=== PATIENT | female | born 1935 | race Caucasian/White ===

== ENCOUNTER 2016-11-11 12:35 | Emergency (ER) | payer MEDICARE, OTHER ==
[~2016-11-11] VITALS: Ht 170.2 cm; Wt 77.1 kg
[2016-11-11 12:37] VITALS: BP 149/74
[2016-11-11] MEDS ORDERED: VITA100041 PO (12:51)
[2016-11-11] MEDS ORDERED: CALC600T21 PO (12:51)
[2016-11-11] MEDS ORDERED: BISO10TA6 PO (12:51)
[2016-11-11] MEDS ORDERED: ATOR1TAB21 PO (12:51)
[2016-11-11] MEDS ORDERED: PRESCAP PO (12:51)
[2016-11-11] MEDS ORDERED: RANI75TA9 PO (12:51)
[2016-11-11] MEDS ORDERED: FAMC500T10 PO (12:51)
[2016-11-11] MEDS ORDERED: RABIES VACCINE HUMAN 2.5 INTERNATIONAL UNITS/ML VIAL (90675) IM ONE (13:15)
[2016-11-11] MEDS ORDERED: RABIES IMMUNE GLOBULIN 1500 INTERNATIONAL UNITS/10 ML VIAL (90375) IM ONE (13:15)
== END 2016-11-11 13:43 | disposition home or self-care (01) ==
LOC: M ED 13:13
DX: Z20.3 Contact with and (suspected) exposure to rabies (principal); Z79.899 Other long term (current) drug therapy; Z88.0 Allergy status to penicillin; Z88.1 Allergy status to other antibiotic agents; Z88.2 Allergy status to sulfonamides

== ENCOUNTER 2016-11-14 08:55 | Emergency (ER) | payer MEDICARE, OTHER ==
[~2016-11-14] VITALS: Ht 167.6 cm; Wt 77.1 kg
[~2016-11-14 08:55] MED LIST: ATOR1TAB21 PO; BISO10TA6 PO; CALC600T21 PO; FAMC500T10 PO; PRESCAP PO; RANI75TA9 PO; VITA100041 PO
[2016-11-14 09:00] VITALS: BP 128/66
[2016-11-14] MEDS ORDERED: RABIES VACCINE HUMAN 2.5 INTERNATIONAL UNITS/ML VIAL (90675) IM ONE (09:30)
== END 2016-11-14 09:53 | disposition home or self-care (01) ==
LOC: M ED 09:30
DX: Z23 Encounter for immunization (principal); Z20.3 Contact with and (suspected) exposure to rabies; I10 Essential (primary) hypertension; E78.00 Pure hypercholesterolemia, unspecified; Z79.899 Other long term (current) drug therapy; Z88.0 Allergy status to penicillin; Z88.1 Allergy status to other antibiotic agents; Z88.2 Allergy status to sulfonamides

== ENCOUNTER 2016-11-18 09:00 | Emergency (ER) | payer MEDICARE, OTHER ==
[~2016-11-18] VITALS: Ht 167.6 cm; Wt 77.1 kg
[2016-11-18] MEDS ORDERED: RABIES VACCINE HUMAN 2.5 INTERNATIONAL UNITS/ML VIAL (90675) IM ONE (10:00)
[2016-11-18 10:21] VITALS: BP 133/71
== END 2016-11-18 10:22 | disposition home or self-care (01) ==
LOC: M ED 09:38
DX: Z23 Encounter for immunization (principal); Z20.3 Contact with and (suspected) exposure to rabies; I10 Essential (primary) hypertension; E78.00 Pure hypercholesterolemia, unspecified; Z79.899 Other long term (current) drug therapy; Z88.0 Allergy status to penicillin; Z88.1 Allergy status to other antibiotic agents; Z88.2 Allergy status to sulfonamides

== ENCOUNTER 2016-11-25 08:59 | Emergency (ER) | payer MEDICARE, OTHER ==
[~2016-11-25] VITALS: Ht 167.6 cm; Wt 77.1 kg
[2016-11-25 09:00] VITALS: BP 131/76
[2016-11-25] MEDS ORDERED: RABIES VACCINE HUMAN 2.5 INTERNATIONAL UNITS/ML VIAL (90675) IM ONE (09:30)
== END 2016-11-25 09:35 | disposition home or self-care (01) ==
LOC: M ED 09:31
DX: Z23 Encounter for immunization (principal); Z20.3 Contact with and (suspected) exposure to rabies; I10 Essential (primary) hypertension; E78.00 Pure hypercholesterolemia, unspecified; Z86.73 Personal history of transient ischemic attack (TIA), and cerebral infarction without residual deficits; Z79.899 Other long term (current) drug therapy; Z88.0 Allergy status to penicillin; Z88.1 Allergy status to other antibiotic agents; Z88.2 Allergy status to sulfonamides; Z87.891 Personal history of nicotine dependence

== ENCOUNTER → 2018-11-05 | Outpatient (REF) | payer MEDICARE, OTHER ==
[~2018-11-05] MED LIST changes: -CALC600T21 PO; +CALC600T60 PO; +RANI75TA15 PO; -RANI75TA9 PO; +VITA-182 PO; -VITA100041 PO
[2018-11-05 18:24] LABS: PERCENT SATURATION 27.4 % (13.2-45.0)
[2018-11-05 18:31] LABS: INR 1.04; PROTHROMBIN TIME 13.7 SECONDS (12.1-14.4)
[2018-11-05 18:32] LABS: PARTIAL THROMBOPLASTIN TIME 30.1 SECONDS (25.4-37.6)
== END ==
LOC: M LAB REF 17:35
PROVIDERS: ATTEND Internal Medicine
DX: R04.0 Epistaxis (principal); I10 Essential (primary) hypertension; E78.5 Hyperlipidemia, unspecified

== ENCOUNTER → 2019-09-06 | Outpatient (REF) | payer MEDICARE, OTHER ==
[~2019-09-06] MED LIST changes: +BISO10TA14 PO; -BISO10TA6 PO
== END ==
LOC: M LAB REF 16:32
PROVIDERS: ATTEND Internal Medicine
DX: R30.0 Dysuria (principal)

== ENCOUNTER → 2020-03-03 | Outpatient (REF) | payer MEDICARE, OTHER ==
[~2020-03-03] MED LIST changes: +ASPI81TA86 PO; +BACITAB PO; +D31000TA2 PO; +FAMC500T PO; -FAMC500T10 PO; +MIDO5TA PO; +MOXI1TAB PO; +NEXI20CA33 PO
[2020-04-20 10:24] LABS: PERCENT SATURATION 36.8 % (13.2-45.0)
== END ==
LOC: M LAB REF 12:19
PROVIDERS: ATTEND Internal Medicine
DX: D64.9 Anemia, unspecified (principal)

== ENCOUNTER 2020-04-04 12:38 | Inpatient (IN) | payer MEDICARE, OTHER ==
[~2020-04-04] VITALS: Ht 170.2 cm; Wt 74.7 kg
[~2020-04-04 12:38] MED LIST changes: -ASPI81TA86 PO; -BACITAB PO; -D31000TA2 PO; -MIDO5TA PO; -MOXI1TAB PO; -NEXI20CA33 PO
[2020-04-04 14:47] LABS: BASO # 0.1 10^3/uL (0.0-0.2); BASO % 0.7 % (0.0-1.0); EOS # 0.6 10^3/uL (0.0-0.5); EOS % 6.5 % (0.0-3.0); HEMATOCRIT 45.1 % (36.0-47.0); HEMOGLOBIN 14.9 g/dl (12.0-15.5); LYMPH # 1.5 10^3/uL (1.5-5.0); LYMPH % 17.9 % (24.0-44.0); MEAN CORPUSCULAR HEMOGLOBIN 31.8 pg (27.0-33.0); MEAN CORPUSCULAR VOLUME 96.2 fl (80.0-96.0); MONO # 0.6 10^3/uL (0.0-0.8); MONO % 6.9 % (0.0-5.0); NEUTROPHILS # 5.7 10^3/uL (1.5-8.5); NEUTROPHILS % 67.9 % (36.0-66.0); PLATELET COUNT, AUTOMATED 249 10^3/uL (150-450); RED BLOOD COUNT 4.69 10^6/uL (4.00-5.40); WHITE BLOOD COUNT 8.5 10^3/uL (4.0-10.0)
[2020-04-04] MEDS ORDERED: MIDO5TA PO (15:10)
[2020-04-04 15:17] LABS: ALBUMIN 3.8 GM/DL (3.2-5.2); ALT/SGPT 22 U/L (12-78); BILIRUBIN,DIRECT 0.2 MG/DL (0.0-0.2); BILIRUBIN,TOTAL 0.5 MG/DL (0.2-1.0); BLOOD UREA NITROGEN 15 MG/DL (7-18); CALCIUM LEVEL 9.7 MG/DL (8.8-10.2); CARBON DIOXIDE LEVEL 23 MEQ/L (21-32); CHLORIDE LEVEL 110 MEQ/L (98-107); CK-MB VALUE MASS 1.4 NG/ML (<3.6); CPK CREATINE PHOSPHOKINASE 131 U/L (26-192); CREATININE FOR GFR 0.94 MG/DL (0.55-1.30); GLOMERULAR FILTRATION RATE > 60.0 (>32); GLUCOSE, FASTING 95 MG/DL (70-100); MB/CK RELATIVE INDEX 1.07 (< OR =4); NT-PRO BNP 351 PG/ML (<450); POTASSIUM SERUM 4.2 MEQ/L (3.5-5.1); SODIUM LEVEL 141 MEQ/L (136-145); TOTAL PROTEIN 7.4 GM/DL (6.4-8.2); TROPONIN I < 0.02 NG/ML (< 0.10)
[2020-04-04] MEDS ORDERED: ISOVUE-370 76% 100ML VIAL As Ordered ONE (16:31)
--- NOTE | 2020-04-04 17:14 | REPVR ---
PROCEDURE INFORMATION: Exam: CT Angiography Chest With Contrast Exam date and time: 04/04/2020 4:53 PM Age: 84 years old Clinical indication: Chest pain; Additional info: SOB, hypoxia TECHNIQUE: Imaging protocol: Computed tomographic angiography of the chest with intravenous contrast. 3D rendering (Not supervised by radiologist): MIP and/or 3D reconstructed images were created by the technologist. Radiation optimization: All CT scans at this facility use at least one of these dose optimization techniques: automated exposure control; mA and/or kV adjustment per patient size (includes targeted exams where dose is matched to clinical indication); or iterative reconstruction. Contrast material: ISO 370; Contrast volume: 75 ml; Contrast route: INTRAVENOUS (IV); COMPARISON: CR Chest, 1 view 04/04/2020 1:39 PM FINDINGS: Pulmonary arteries: No pulmonary arterial embolism. Aorta: Unremarkable. No aortic aneurysm. No aortic dissection. Lungs: Bilateral peripheral ground-glass lung opacities, nonspecific. Ground-glass opacities are present within the medial right upper lobe, posterior left lower lobe and posterior lateral left lower lobe. Differential diagnosis includes infection including bacterial, atypical and viral pneumonias (including COVID-19 pneumonia), nonspecific interstitial pneumonitis, eosinophilic pneumonitis and hypersensitivity pneumonia. Left lower lobe calcified granulomas. Dependent opacities within the lung bases, likely atelectasis. Pleural space: Unremarkable. No pneumothorax. No pleural effusion. Heart: Unremarkable. No cardiomegaly. No pericardial effusion. Lymph nodes: Left hilar calcified lymph nodes. Spleen: Calcified granulomas within the spleen. Bones/joints: Degenerative spondylosis of the thoracic spine. No fracture or suspicious bone lesion. Soft tissues: Unremarkable. IMPRESSION: 1. No pulmonary arterial embolism. 2. Evidence of prior granulomatous disease. 3. Bilateral peripheral ground-glass lung opacities, nonspecific. Differential diagnosis includes infection including bacterial, atypical and viral pneumonias (including COVID-19 pneumonia), nonspecific interstitial pneumonitis, eosinophilic pneumonitis and hypersensitivity pneumonia. Electronically signed by: Gaston Marrero On 04/04/2020 17:14:06 PM
[2020-04-04] MEDS ORDERED: LevoFLOXacin IV 750 MG in IV 1 EA IV ONE (18:15)
[2020-04-04] MEDS ORDERED: D31000TA2 PO (19:01)
[2020-04-04] MEDS ORDERED: NEXI20CA33 PO (19:01)
[2020-04-04] MEDS ORDERED: ACETAMINOPHEN TAB 650MG DOSE (2X325MG) PO PRN (19:15)
[2020-04-04] MEDS ORDERED: MOM 30ML SUSPENSION UDC PO PRN (19:15)
--- NOTE | 2020-04-04 19:19 | HPEPDOC ---
[facility] Medical History & Physical Date of Admission Apr 04, 2020 Date of Service: Apr 04, 2020 Primary Care Physician: ALBA BULLOCK DO Attending Physician: JESSICA BREWER MD History and Physical TIME OF SERVICE: 810 am CHIEF COMPLAINT: dyspnea HISTORY OF PRESENT ILLNESS: This 84 yr old F presented w c/o worsening of gradually worsening shortness of breath for 1 week associated with decreased energy, and cough productive of clear sputum. She denied having f/c/n/v/d/chest pain, abdominal pain or muscle aches. She chronically has a runny nose which she attributes to seasonal a llergies. In the ER she was noted to desat to 84% with ambulation and was started on Levaquin. REVIEW OF SYSTEMS: 12 point review of systems negative except as listed in HPI PAST MEDICAL/ SURGICAL HISTORY: Chronic hypotension TIA Cataracts OA Hysterectomy Vein stripping surgery for varicose veins SOCIAL HISTORY: Former smoker / drinks alcohol socially / no recreational drugs FAMILY HISTORY: Lymphoma / lung cancer ALLERGIES: Please see below. HOME MEDICATIONS: Please see below. PHYSICAL EXAM Vital Signs Date Time Temp Pulse Resp B/P (MAP) Pulse Ox O2 Delivery O2 Flow Rate FiO2 04/04/20 12:40 97.9 105 18 170/89 (116) 96 Room Air GENERAL APPEARANCE: well nourished / well developed /NAD HEENT: no scleral icterus / EOMI CARDIOVASCULAR: RRR/NMRG / radial pulse intact LUNGS: not using accessory muscles / occasional cough / CTAB on RA ABDOMEN: soft & not tender w palpitation MUSCULOSKELETAL: SONU x 4 INTEGUMENT: not flushed or diaphoretic / no generalized pallor NEUROLOGICAL: CN -12 intact / speech not dysarthric PSYCHIATRIC: A&Ox 3 /able to understand and follow all commands LABORATORY DATA: 04/04/20 14:24 Immature Granulocyte % (Auto) 0.1, Neutrophils (%) (Auto) 67.9H, Lymphocytes (%) (Auto) 17.9L, Monocytes (%) (Auto) 6.9H, Eosinophils (%) (Auto) 6.5H, Basophils (%) (Auto) 0.7, Neutrophils # (Auto) 5.7, Lymphocytes # (Auto) 1.5, Monocytes # (Auto) 0.6, Eosinophils # (Auto) 0.6H, Basophils # (Auto) 0.1, Nucleated Red Blood Cells % (auto) 0.0, Anion Gap 8, Glomerular Filtration Rate > 60.0, Calcium Level 9.7, Total Bilirubin 0.5, Direct Bilirubin 0.2, Aspartate Amino Transf (AST/SGOT) 22, Alanine Aminotransferase (ALT/SGPT) 22, Alkaline Phosphatase 98, Total Creatine Kinase 131, Creatine Kinase MB 1.4, Creatine Kinase MB Relative Index 1.07, Troponin I < 0.02, EJ-Pei-Z-Type Natriuretic Peptide 351, Total Protein 7.4, Albumin 3.8, Albumin/Globulin Ratio 1.1L, Thyroid Stimulating Hormone (TSH) 1.510 IMAGING: CTA chest IMPRESSION: 1. No pulmonary arterial embolism. 2. Evidence of prior granulomatous disease. 3. Bilateral peripheral ground-glass lung opacities, nonspecific. Differential diagnosis includes infection including bacterial, atypical and viral pneumonias (including COVID-19 pneumonia), nonspecific interstitial pneumonitis, eosinophilic pneumonitis and hypersensitivity pneumonia. MICROBIOLOGY: 04/04/20 Respiratory Virus Panel (PCR) (JAZMINE) - Final, Complete ASSESSMENT: is an 84 yr old w a hx of TIA and hypotension who presented w c/o of dyspnea and productive cough and was found to have bilateral opacities on CT; she will be admitted for possible PNA. PLAN: 1 Possible Pneumonia -symptoms include dyspnea and cough & hypoxia with ambulation CURB 65 score to determine if pt should be admitted = 1 point = low risk Respiratory panel neg Plan: despite low CURB 65 score will admit to med surg bc of hypoxia w ambulation / f/u strep pneumo, legionella, procalcitonin, sputum cx / c/w levofloxacin / Acetaminophen PRN for fever / day time team to consider repeat COVID 19 in case the first test is a false neg & ambulatory / f/u repeat ambulatory pulse ox test in the AM if wnl consider early discharge 2 Chronic Hypotension Plan: midodrine 3. TIA Plan: atorvastatin, add ASA DVT px w Lovenox (Gonzalo Prediction Score = 4 points = pharmacological Px indicated) Dispo: home after more than 2 midnights stay Home Medications Scheduled Aspirin (Aspir 81) 81 Mg Tablet.dr, 81 MG PO DAILY for pain Atorvastatin Calcium (Atorvastatin Calcium) 20 Mg Tab, 20 MG PO DAILY Calcium Carbonate (Calcium) 600 Mg Tab, 600 MG PO DAILY Cholecalciferol (Vitamin D3) (Vitamin D3) 1,000 Unit Tablet, 1,000 UNITS PO DAILY Esomeprazole Magnesium (Nexium 24Hr) 20 Mg Capsule.dr, 20 MG PO DAILY Famciclovir (Famciclovir) 500 Mg Tab, 500 MG PO DAILY Midodrine HCl (Midodrine HCl) 5 Mg Tablet, 5 MG PO TID Vit A/Vit C/Vit E/Zinc/Copper (Preservision Areds Softgel) 1 Cap Cap, 1 CAP PO DAILY Allergies Coded Allergies: Penicillins (Verified Allergy, Intermediate, 04/04/20) Sulfa (Sulfonamide Antibiotics) (Verified Allergy, Intermediate, 04/04/20) A-FIB/CHADSVASC A-FIB History Current/History of A-Fib/PAF?: No Current PO Anticoag Therapy: No JESSICA BREWER MD Apr 04, 2020 19:19
[2020-04-04] MEDS ORDERED: ASPI81TA86 PO (22:43)
[2020-04-05 06:36] LABS: HEMATOCRIT 43.4 % (36.0-47.0); HEMOGLOBIN 14.3 g/dl (12.0-15.5); MEAN CORPUSCULAR HEMOGLOBIN 31.7 pg (27.0-33.0); MEAN CORPUSCULAR HGB CONC 32.9 g/dl (32.0-36.5); MEAN CORPUSCULAR VOLUME 96.2 fl (80.0-96.0); PLATELET COUNT, AUTOMATED 242 10^3/uL (150-450); RED BLOOD COUNT 4.51 10^6/uL (4.00-5.40); WHITE BLOOD COUNT 8.4 10^3/uL (4.0-10.0)
[2020-04-05 07:00] LABS: BLOOD UREA NITROGEN 14 MG/DL (7-18); CARBON DIOXIDE LEVEL 25 MEQ/L (21-32); CHLORIDE LEVEL 110 MEQ/L (98-107); CREATININE FOR GFR 1.01 MG/DL (0.55-1.30); GLOMERULAR FILTRATION RATE 55.5 (>32); GLUCOSE, FASTING 94 MG/DL (70-100); POTASSIUM SERUM 4.2 MEQ/L (3.5-5.1); SODIUM LEVEL 143 MEQ/L (136-145)
[2020-04-05] MEDS ORDERED: PNEUMOCOCCAL VACCINE 0.5ML SYRINGE (PNEUMOVAX 23) IM ONE (09:00)
[2020-04-05] MEDS ORDERED: PREVNAR 13 VACCINE SYRINGE IM ONE (09:00)
[2020-04-05 09:45] VITALS: BP 143/93
[2020-04-05] MEDS: ASPIRIN 81 MG CHEW TABLET PEG SCH (10:58)
[2020-04-05] MEDS: ATORVASTATIN 20 MG TAB PO SCH (10:58)
[2020-04-05] MEDS: MIDODRINE 5 MG TAB PO SCH ×3 (10:58→16:19)
[2020-04-05] MEDS: OCUVITE 1 TAB PO SCH (10:58)
[2020-04-05] MEDS: OMEPRAZOLE 20 MG CAP PO SCH (10:58)
[2020-04-05] MEDS: ENOXAPARIN 40MG/0.4ML SYRINGE (J1650 PER 10MG) SC SCH (10:59)
[2020-04-05 11:54] VITALS: O2SAT 94
[2020-04-05 13:00] VITALS: BP_SYST 129; BP_SYST 144; BP_SYST 146; BP_DIAS 83; BP_DIAS 88; BP_DIAS 93
[2020-04-05 13:31] LABS: C REACTIVE PROTEIN QUANTITATIV < 0.30 MG/DL (0.00-0.30)
[2020-04-05 14:00] VITALS: BP 142/88
[2020-04-05 14:16] LABS: ERYTHROCYTE SEDIMENTATION RATE 10 mm/hr (0-30)
[2020-04-05 22:00] VITALS: BP 128/81
[2020-04-06 06:00] VITALS: BP 127/80
[2020-04-06 08:05] VITALS: O2SAT 95
[2020-04-06] MEDS: OMEPRAZOLE 20 MG CAP PO SCH (08:12)
[2020-04-06] MEDS: ATORVASTATIN 20 MG TAB PO SCH (08:12)
[2020-04-06] MEDS: ASPIRIN 81 MG CHEW TABLET PEG SCH (08:13)
[2020-04-06] MEDS: MIDODRINE 5 MG TAB PO SCH ×3 (08:13→16:09)
[2020-04-06] MEDS: OCUVITE 1 TAB PO SCH (08:13)
[2020-04-06] MEDS: ENOXAPARIN 40MG/0.4ML SYRINGE (J1650 PER 10MG) SC SCH (08:14)
[2020-04-06] MEDS ORDERED: FLUBLOK(EGG FREE)(QUAD)INFLUENZA VACC 0.5ML SYRINGE 18YRS & OLDER IM ONE (09:00)
[2020-04-06 13:57] LABS: BASO % 0.3 % (0.0-1.0); EOS # 0.6 10^3/uL (0.0-0.5); EOS % 6.3 % (0.0-3.0); HEMATOCRIT 46.6 % (36.0-47.0); HEMOGLOBIN 15.2 g/dl (12.0-15.5); LYMPH # 1.7 10^3/uL (1.5-5.0); LYMPH % 17.9 % (24.0-44.0); MEAN CORPUSCULAR HEMOGLOBIN 31.6 pg (27.0-33.0); MEAN CORPUSCULAR HGB CONC 32.6 g/dl (32.0-36.5); MEAN CORPUSCULAR VOLUME 96.9 fl (80.0-96.0); MONO # 0.8 10^3/uL (0.0-0.8); MONO % 8.1 % (0.0-5.0); NEUTROPHILS # 6.3 10^3/uL (1.5-8.5); PLATELET COUNT, AUTOMATED 273 10^3/uL (150-450); RED BLOOD COUNT 4.81 10^6/uL (4.00-5.40); WHITE BLOOD COUNT 9.5 10^3/uL (4.0-10.0)
[2020-04-06 14:00] VITALS: BP 148/92
[2020-04-06 14:20] LABS: CALCIUM LEVEL 9.4 MG/DL (8.8-10.2); CREATININE FOR GFR 1.12 MG/DL (0.55-1.30); GLOMERULAR FILTRATION RATE 49.2 (>32); POTASSIUM SERUM 4.2 MEQ/L (3.5-5.1)
[2020-04-06] MEDS ORDERED: LevoFLOXacin IV 750 MG in IV 1 EA IV SCH (18:00)
[2020-04-06 22:00] VITALS: BP 133/76; O2SAT 97
[2020-04-07 06:00] VITALS: BP 129/75
[2020-04-07] MEDS ORDERED: MOXI1TAB PO (08:05)
[2020-04-07] MEDS ORDERED: BACITAB PO (08:05)
[2020-04-07] MEDS: ENOXAPARIN 40MG/0.4ML SYRINGE (J1650 PER 10MG) SC SCH (08:34)
[2020-04-07] MEDS: ATORVASTATIN 20 MG TAB PO SCH (08:34)
[2020-04-07] MEDS: OMEPRAZOLE 20 MG CAP PO SCH (08:34)
[2020-04-07] MEDS: ASPIRIN 81 MG CHEW TABLET PEG SCH (08:34)
[2020-04-07] MEDS: OCUVITE 1 TAB PO SCH (08:34)
[2020-04-07] MEDS: MIDODRINE 5 MG TAB PO SCH ×2 (08:35→12:00)
[2020-04-07 09:48] LABS: BASO % 0.3 % (0.0-1.0); EOS # 0.7 10^3/uL (0.0-0.5); EOS % 9.2 % (0.0-3.0); HEMATOCRIT 44.9 % (36.0-47.0); HEMOGLOBIN 14.9 g/dl (12.0-15.5); LYMPH # 1.5 10^3/uL (1.5-5.0); LYMPH % 19.4 % (24.0-44.0); MEAN CORPUSCULAR HEMOGLOBIN 31.6 pg (27.0-33.0); MEAN CORPUSCULAR HGB CONC 33.2 g/dl (32.0-36.5); MEAN CORPUSCULAR VOLUME 95.3 fl (80.0-96.0); MONO # 0.6 10^3/uL (0.0-0.8); MONO % 7.6 % (0.0-5.0); NEUTROPHILS % 63.2 % (36.0-66.0); PLATELET COUNT, AUTOMATED 274 10^3/uL (150-450); RED BLOOD COUNT 4.71 10^6/uL (4.00-5.40); WHITE BLOOD COUNT 7.9 10^3/uL (4.0-10.0)
[2020-04-07 09:58] LABS: CALCIUM LEVEL 9.5 MG/DL (8.8-10.2); CREATININE FOR GFR 1.1 MG/DL (0.55-1.30); GLOMERULAR FILTRATION RATE 50.3 (>32); POTASSIUM SERUM 4.2 MEQ/L (3.5-5.1)
--- NOTE | 2020-04-07 13:40 | IPN ---
DATE: 04/05/2020 SUBJECTIVE: Patient is seen and examined at the bedside. Chart has been reviewed. She denies any fever, chills, nausea, or vomiting. Epigastric pain does not radiate and currently at 2/10 on a pain scale. OBJECTIVE: PHYSICAL EXAMINATION: Vital signs: Temperature 98.2, pulse 95, respiratory rate 18, blood pressure 143/93, 95% on room air. Generally: Awake, alert, oriented times three, answering questions appropriately. Anicteric sclerae. No jaundice. Pupils round and reactive. Extraocular muscles intact. Normocephalic, atraumatic. Moist mucous membranes. No jugular venous distension (JVD) or thyromegaly. Lungs: Clear to auscultation. No wheezing, rales, or rhonchi. Heart: S1, S2, sinus rhythm. No murmurs, rubs, or gallops. Abdomen: Soft, tender in the epigastric region and left upper quadrant, no rebound or guarding. Positive bowel sounds times four quadrants. No hepatosplenomegaly. No abdominal bruit. No costovertebral (CVA) tenderness. Extremities: No cyanosis or clubbing. LABORATORY DATA: White count 8.4, hemoglobin 14, hematocrit 43, platelet count 242, sodium 143, potassium 4.2, chloride 110, bicarbonate 25, BUN 14, creatinine 1.02, glucose of 94. Microbiology: Respiratory panel negative. CT abdomen and pelvis on 04/04/2020 shows nonspecific ground glass opacity medial right upper lobe, posterior lower lobe, posterolateral left lower lobe. No pulmonary embolism. Respiratory panel is negative for COVID. ASSESSMENT AND PLAN: This is an 84-year-old female with history of transient ischemic attack (TIA), osteoarthritis, varicosities, hypotension, presented with dyspnea, found to have acute hypoxic respiratory failure at 84% with ambulation, allergy to PENICILLIN, found to have CT chest with ground glass opacity concerning for pneumonia. Patient had no white count. Respiratory panel negative. IMPRESSION: 1. Abnormal CT chest. Possible pneumonia. Allergy to PENICILLIN. Currently on Levaquin. Culture results have been ordered. COVID-19 is negative. 2. Chronic hypotension. On midodrine. 3. Transient ischemic attack (TIA). On aspirin, Lipitor. MTDD
[2020-04-07 14:00] VITALS: BP 134/97
--- NOTE | 2020-04-07 15:24 | IPN ---
DATE: 04/06/2020 SUBJECTIVE: Patient seen and examined at the bedside. Chart has been reviewed. This morning, denies any fever, chills, cough, or shortness of breath. No nausea, vomiting, diarrhea. No headaches or changes in vision. No dysuria, urgency, or frequency. No other issues per nursing. OBJECTIVE: PHYSICAL EXAMINATION: Vital signs: Temperature 97, pulse 85, respiratory rate 16, blood pressure 127/80, 94% on room air. Generally: Patient is awake, alert, oriented times three, answering questions appropriately. No icterus. No jaundice. No sinus tenderness. Patient has no respiratory accessory muscle use or conversational dyspnea. Able to complete full sentences without difficulty. No jugular venous distension (JVD). No thyromegaly. Lungs: Diminished. No wheezing or rales. Heart: S1, S2, sinus rhythm. Abdomen: Soft, nontender, nondistended. Positive bowel sounds times four quadrants. No hepatosplenomegaly, abdominal bruit. Extremities: No cyanosis, clubbing, or pitting edema. 04/05/2020 CBC and metabolic panel have been reviewed. 04/06/2020 labs are still pending. ASSESSMENT AND PLAN: This is an 84-year-old female admitted 04/04/2020 with complaints of dyspnea for the past week with decreased energy, cough productive of clear sputum without fever, chills, patient had a runny nose attributable to seasonal allergies, had negative COVID testing and respiratory panel, found to have bilateral infiltrates on CT chest and was admitted for bilateral pneumonia. Patient has no white count or fever. Due to PENICILLIN allergy was placed on Levaquin and has improved since with saturations of 92-95% on room air. IMPRESSION: 1. Bilateral pneumonia, bilateral infiltrates. Currently on room air. On Levaquin due to PENICIILLIN allergy. Review of the CT chest by Dr. Gaytan, managing member armed security professional today, showed that there is no significant opacities or infiltrates, most likely scarring and some atelectasis and recommended no repeat COVID testing, as well as incentive spirometry. 2. Chronic hypotension. On midodrine with holding parameters. 3. History of transient ischemic attack (TIA). On aspirin and atorvastatin. DISPOSITION: Physical therapy (PT) home safety evaluation, ambulate, and discharge home if negative procalcitonin. [facility]
--- NOTE | 2020-04-07 15:26 | IPN ---
DATE: 04/07/2020 SUBJECTIVE Patient seen and examined at the bedside. Chart has been reviewed. Per nursing, patient becomes tachycardic. Weight of 152. Patient denies any cough. No fever or chills overnight. OBJECTIVE PHYSICAL EXAMINATION: VITAL SIGNS Temperature 98, pulse 80, respiratory rate 18, blood pressure 129/75, 95% on room air. GENERAL: Patient is awake, alert, oriented times three. No conversational dyspnea. No icterus. No jugular venous distention (JVD). No cervical lymphadenopathy. LUNGS: Diminished but clear to auscultation. No wheezing, rales, or rhonchi. HEART: S1, S2, sinus tachycardia. ABDOMEN: Soft, nontender, nondistended. Positive bowel sounds. EXTREMITIES: No cyanosis, clubbing, or pitting edema. LABORATORY DATA: White count 7.9, hemoglobin 14, hematocrit 44, platelet count 274. Sodium 141, potassium 4.2, chloride 109, bicarbonate 22, BUN 19, creatinine 1.1, glucose 148. Blood cultures negative. Urine culture negative. Respiratory panel negative. COVID negative. ASSESSMENT AND PLAN: This is an 84-year-old female, admitted on 04/04/2020 due to shortness of breath. Was found to be 84% on room air. CT chest showed bilateral opacities. Respiratory panel and COVID were negative. Admitted for pneumonia. Due to penicillin allergy was given Levaquin renal dosing. Patient was found to be tachycardic, rate of 150. EKG still pending. IMPRESSION: 1. Pneumonia with bilateral opacities, on Levaquin. Afebrile. Negative COVID and respiratory panel. Continue with a full course of 7 days of antibiotics. 2. Chronic hypotension, on chronic midodrine. 3. Transient ischemic attack (TIA), on aspirin and Lipitor. 4. Sinus tachycardia. Obtain 12-lead EKG rule out arrhythmia and continue on telemetry. [facility]
[2020-04-08 16:07] LABS: ANTINUCLEAR ANTIBODIES DIRECT Negative (Negative)
[2020-04-10 15:10] LABS: BODY FLUID CULTURE Not indicated. (.); LEGIONELLA ANTIGEN URINE Negative (Negative); ORGANISM ID Not indicated. (.); SPECIMEN SOURCE Urine (.); URINE STREP PNEUMONIAE ANTIGEN Negative (Negative)
--- NOTE | 2020-04-17 11:00 | ECGEPIP ---
[facility] - ED Test Date: 2020-04-04 Pat Name: LILIA POLANCO Department: Room: - Gender: Female Piping Supervisor: BIPIN : [id number] Requested By: RUDY Caceres Order Number: [id number] Reading MD: Batsheva Mauricio Measurements Intervals [place] Rate: 79 P: -1 ND: 159 QRS: -3 QRSD: 78 T: 16 QT: 363 QTc: 417 Interpretive Statements SINUS RHYTHM MODERATE VOLTAGE CRITERIA FOR LVH, CONSIDER NORMAL VARIANT BORDERLINE ECG SEE SCANNED DOWNTIME REPORT
--- NOTE | 2020-04-20 14:38 | ECGEPIP ---
[facility] Test Date: 2020-04-07 Pat Name: LILIA POLANCO Department: Room: [place] [address] Gender: Female Apple Picker: REBECCA : [id number] Requested By: DUGLAS Cruz Order Number: [id number] Reading MD: Julio Whyte Measurements Intervals [place] Rate: 87 P: -12 IA: 161 QRS: -1 QRSD: 80 T: 31 QT: 344 QTc: 415 Interpretive Statements SINUS RHYTHM NORMAL ECG SEE SCANNED DOWNTIME REPORT
--- NOTE | 2020-05-02 11:37 | REP ---
CLINICAL: Shortness of breath. FINDINGS: Mediastinum and cardiac silhouette are within normal limits. Lung prince demonstrate chronic appearing interstitial changes. No consolidation, effusion or pneumothorax. Skeletal structures are intact. IMPRESSION: No acute consolidation or effusion. MTDD
== END 2020-04-07 14:41 | disposition home or self-care (01) | DRG 195 ==
LOC: M ED 12:38 → M ED INP 19:15 → ENRESERV 04-05 06:42 → M MSPAV 04-05 09:47
PROVIDERS: ADMIT Internal Medicine; ATTEND General Practice
DX: J18.9 Pneumonia, unspecified organism (principal); I10 Essential (primary) hypertension; Z86.73 Personal history of transient ischemic attack (TIA), and cerebral infarction without residual deficits; Z79.82 Long term (current) use of aspirin; Z79.899 Other long term (current) drug therapy; M19.90 Unspecified osteoarthritis, unspecified site; Z87.891 Personal history of nicotine dependence; Z88.0 Allergy status to penicillin; Z88.2 Allergy status to sulfonamides

== ENCOUNTER → 2020-04-28 | Outpatient (REF) | payer MEDICARE, OTHER ==
[~2020-04-28] MED LIST changes: +ASPI81TA86 PO; +BACITAB PO; +D31000TA2 PO; +MIDO5TA PO; +MOXI1TAB PO; +NEXI20CA33 PO
[2020-04-28 17:57] LABS: C REACTIVE PROTEIN QUANTITATIV 0.34 MG/DL (0.00-0.30)
[2020-04-28 18:11] LABS: VITAMIN B12 LEVEL 520 PG/ML (247-911)
== END ==
LOC: M LAB REF 17:18
PROVIDERS: ATTEND Internal Medicine
DX: R41.3 Other amnesia (principal); M15.9 Polyosteoarthritis, unspecified

== ENCOUNTER → 2020-06-13 | Outpatient (CLI) | payer MEDICARE, OTHER ==
--- NOTE | 2020-06-13 14:54 | REPVR ---
PROCEDURE INFORMATION: Exam: MR Cervical Spine Without Contrast Exam date and time: 06/13/2020 2:36 PM Age: 85 years old Clinical indication: Weakness and other: Unsteadiness on feet, TIA attack TECHNIQUE: Imaging protocol: Multiplanar magnetic resonance images of the cervical spine without contrast. COMPARISON: No relevant prior studies available. FINDINGS: Limitations: The study is mildly limited due to patient motion artifact. Vertebrae: No acute fracture is identified. Fusion of the bilateral C2-C3 facets is present. Fusion of the right C4-C5 facets are also noted. Spinal cord: The cervical cord is of normal signal intensity and size. C2-C3: Facet arthropathy with fusion of the facets is noted. There is no spinal canal or neural foraminal stenosis. C3-C4: There is a broad-based posterior disc osteophyte complex, moderate uncinate spurring, severe right facet arthropathy, and mild left facet arthropathy. This is causing minimal spinal canal stenosis, severe right neural foraminal narrowing, and moderate/severe left neural foraminal narrowing. C4-C5: There is severe right and mild left facet arthropathy. Fusion of the right facets is present. There is no significant spinal canal or neural foraminal stenosis. C5-C6: There is a shallow broad-based posterior disc osteophyte complex, mild uncinate spurring, and severe right facet arthropathy. There is no significant spinal canal or neural foraminal stenosis. C6-C7: There is a shallow broad-based posterior disc osteophyte complex, mild uncinate spurring, and mild facet arthropathy. This is causing minimal spinal canal stenosis and mild left neural foraminal narrowing. There is a tiny incidental perineural cyst in the left extraforaminal region. C7-T1: There is a shallow broad-based posterior disc osteophyte complex and moderate uncinate spurring. This is causing mild spinal canal stenosis and moderate/severe bilateral neural foraminal narrowing. An incidental perineural cyst is present in the left extraforaminal region. Vertebral arteries: Expected flow voids in the vertebral arteries. Soft tissues: The prevertebral soft tissues are within normal limits. IMPRESSION: Marked degenerative changes of the cervical spine as discussed above Electronically signed by: David Cordoba On 06/13/2020 14:54:31 PM
--- NOTE | 2020-06-13 14:59 | REPVR ---
PROCEDURE INFORMATION: Exam: MR Thoracic Spine Without Contrast Exam date and time: 06/13/2020 2:36 PM Age: 85 years old Clinical indication: Weakness and other: Unsteadiness on feet, TIA attack TECHNIQUE: Imaging protocol: Multiplanar magnetic resonance images of the thoracic spine without contrast. COMPARISON: No relevant prior studies available. FINDINGS: Limitations: The study is mildly limited due to patient motion artifact. Vertebrae: No acute fracture is identified. Degenerative Modic 1 and Modic 2 marrow changes are present in the T5 through T8 vertebral bodies. Alignment is anatomic. Spinal cord: Normal signal. No cord compression. Discs/Spinal canal/Neural foramina: Extensive degenerative changes of the thoracic spine are present. Mild posterior disc bulging is present at T1-2, T2-3, T5-6, T6-7, T7-8, T11-12, and T12-L1. There are no areas of moderate or severe canal stenosis. Small incidental perineural cysts are noted in the foramina and extraforaminal regions at multiple levels of the thoracic spine. Soft tissues: Unremarkable. IMPRESSION: 1. No acute abnormality. 2. Chronic findings as discussed above. Electronically signed by: David Cordoba On 06/13/2020 14:59:19 PM
== END ==
LOC: M RAD 13:00
PROVIDERS: ATTEND Psychiatry & Neurology Neurology
DX: G45.9 Transient cerebral ischemic attack, unspecified (principal)

== ENCOUNTER → 2020-06-16 | Outpatient (CLI) | payer MEDICARE, OTHER ==
--- NOTE | 2020-06-16 13:46 | REPVR ---
PROCEDURE INFORMATION: Exam: MR Angiogram Head Without Contrast, Arteries Exam date and time: 06/16/2020 1:30 PM Age: 85 years old Clinical indication: Other: Unbalanced gait, HX TIA; Additional info: Transient cerebral ischemic attack, unsteadiness on feet TECHNIQUE: Imaging protocol: MR angiogram head without contrast. Exam focused on the arteries. 3D rendering (Not supervised by radiologist): MIP and/or 3D reconstructed images were created by the technologist. COMPARISON: No relevant prior studies available. FINDINGS: ANTERIOR CIRCULATION: Right internal carotid artery: Intracranial segment is patent with no significant stenosis. No aneurysm. Right middle cerebral artery: No occlusion or significant stenosis. No aneurysm. Right anterior cerebral artery: No occlusion or significant stenosis. No aneurysm. Left internal carotid artery: Intracranial segment is patent with no significant stenosis. No aneurysm. Left middle cerebral artery: No occlusion or significant stenosis. No aneurysm. Left anterior cerebral artery: No occlusion or significant stenosis. No aneurysm. POSTERIOR CIRCULATION: Right vertebral artery: No occlusion or significant stenosis. No aneurysm. Left vertebral artery: No occlusion or significant stenosis. No aneurysm. Basilar artery: There is suspected focal fenestration of the proximal basilar artery. No occlusion or significant stenosis. No aneurysm. Right posterior cerebral artery: There is a origin of the right posterior cerebral artery. Left posterior cerebral artery: No occlusion or significant stenosis. No aneurysm. IMPRESSION: 1. 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 This could be confirmed with CTA as indicated. 2. Otherwise, examination within normal limits. Electronically signed by: Skyla Shoemaker On 06/16/2020 13:46:28 PM
--- NOTE | 2020-06-16 13:48 | REPVR ---
PROCEDURE INFORMATION: Exam: MR Angiography Neck Without Contrast Exam date and time: 06/16/2020 1:30 PM Age: 85 years old Clinical indication: Other: Unbalanced gait, HX TIA; Additional info: Transient cerebral ischemic attack, unsteadiness on feet TECHNIQUE: Imaging protocol: Magnetic resonance angiography of the neck without contrast. 3D rendering (Not supervised by radiologist): MIP and/or 3D reconstructed images were created by the technologist. COMPARISON: MRI-Spine,Cervical without con 06/13/2020 1:38 PM FINDINGS: Right common carotid artery: No stenosis. No dissection or occlusion. Right internal carotid artery: No stenosis of the extracranial segment. No dissection or occlusion. Right external carotid artery: No stenosis. No dissection or occlusion of the origin. Right vertebral artery: No stenosis. No dissection or occlusion. Left common carotid artery: No stenosis. No dissection or occlusion. Left internal carotid artery: No stenosis of the extracranial segment. No dissection or occlusion. Left external carotid artery: No stenosis. No dissection or occlusion of the origin. Left vertebral artery: No stenosis. No dissection or occlusion. IMPRESSION: No stenosis or occlusion. REFERENCES: NASCET CRITERIA. The degree of internal carotid artery stenosis is based on NASCET criteria. Normal is no stenosis. Mild is less than 50% stenosis. Moderate is 50-69% stenosis. Severe is 70% to 99% stenosis. Total occlusion is no detectable patent lumen. Electronically signed by: Skyla Shoemaker On 06/16/2020 13:47:59 PM
== END ==
LOC: M RAD 12:03
PROVIDERS: ATTEND Psychiatry & Neurology Neurology
DX: G45.9 Transient cerebral ischemic attack, unspecified (principal); R26.81 Unsteadiness on feet; M50.00 Cervical disc disorder with myelopathy, unspecified cervical region; M47.15 Other spondylosis with myelopathy, thoracolumbar region

== ENCOUNTER → 2022-11-04 | Outpatient (REF) | payer MEDICARE, OTHER ==
[~2022-11-04] MED LIST changes: -D31000TA2 PO; +VITA100093 PO
== END ==
LOC: M LAB REF 16:29
PROVIDERS: ATTEND Internal Medicine
DX: R19.7 Diarrhea, unspecified (principal); I95.1 Orthostatic hypotension

== ENCOUNTER → 2022-11-05 | Outpatient (REF) | payer MEDICARE, OTHER | LOC: M LAB REF 14:42 | PROVIDERS: ATTEND Internal Medicine | DX: R19.7 Diarrhea, unspecified (principal); R19.4 Change in bowel habit ==

== ENCOUNTER 2023-03-20 07:09 | Day surgery (SDC) | payer MEDICARE, OTHER ==
[~2023-03-20] VITALS: Ht 172.7 cm; Wt 72.2 kg
[~2023-03-20 07:09] MED LIST changes: +ALLE1TAB23 PO; +BAYE81TA10 PO; +BISO5TAB14 PO; +CLOP75TA2 PO; +DICY-61 PO; +MECL-86 PO; +NS 1,000 ML IV ONE; +OCUVTAB4 PO
[2023-03-20 09:21] VITALS: TEMP 97.4
[2023-03-20 09:33] VITALS: BP 105/61; O2SAT 95
== END 2023-03-20 09:33 | disposition home or self-care (01) ==
LOC: M OPP 07:09
PROVIDERS: ATTEND Surgery
DX: K57.30 Diverticulosis of large intestine without perforation or abscess without bleeding (principal); R19.7 Diarrhea, unspecified; Z87.891 Personal history of nicotine dependence; Z79.02 Long term (current) use of antithrombotics/antiplatelets; Z79.82 Long term (current) use of aspirin; Z79.84 Long term (current) use of oral hypoglycemic drugs; Z79.891 Long term (current) use of opiate analgesic; Z88.0 Allergy status to penicillin

== ENCOUNTER → 2023-05-20 | Outpatient (REF) | payer MEDICARE, OTHER ==
[~2023-05-20] MED LIST changes: -NS 1,000 ML IV ONE
== END ==
LOC: M LAB REF 13:13
PROVIDERS: ATTEND Internal Medicine
DX: G60.9 Hereditary and idiopathic neuropathy, unspecified (principal)

== ENCOUNTER → 2023-06-05 | Outpatient (CLI) | payer MEDICARE, OTHER | LOC: M RAD 07:39 | PROVIDERS: ATTEND Internal Medicine | DX: Z13.818 Encounter for screening for other digestive system disorders (principal); R93.3 Abnormal findings on diagnostic imaging of other parts of digestive tract ==

== ENCOUNTER 2023-10-06 12:50 | Inpatient (IN) | payer MEDICARE, OTHER ==
[~2023-10-06] VITALS: Ht 172.7 cm; Wt 74.4 kg
[~2023-10-06 12:50] MED LIST changes: -ALLE1TAB23 PO; +FEXO-157 PO
[2023-10-06] MEDS ORDERED: ISOVUE-370 76% 100ML VIAL As Ordered ONE (13:10)
[2023-10-06 13:45] LABS: BASO % 0.3 % (0.0-1.0); EOS # 0.1 10^3/uL (0.0-0.5); EOS % 0.5 % (0.0-3.0); HEMOGLOBIN 12.5 g/dl (12.0-15.5); LYMPH # 0.9 10^3/uL (1.5-5.0); LYMPH % 10.3 % (24.0-44.0); MEAN CORPUSCULAR HEMOGLOBIN 31.6 pg (27.0-33.0); MEAN CORPUSCULAR HGB CONC 32.9 g/dl (32.0-36.5); MEAN CORPUSCULAR VOLUME 96.2 fl (80.0-96.0); MONO # 0.8 10^3/uL (0.0-0.8); MONO % 8.2 % (2.0-8.0); NEUTROPHILS # 7.3 10^3/uL (1.5-8.5); NEUTROPHILS % 80.4 % (36.0-66.0); PLATELET COUNT, AUTOMATED 269 10^3/uL (150-450); RED BLOOD COUNT 3.95 10^6/uL (4.00-5.40); WHITE BLOOD COUNT 9.1 10^3/uL (4.0-10.0)
[2023-10-06 13:58] LABS: PARTIAL THROMBOPLASTIN TIME 25.5 SECONDS (24.8-34.2)
[2023-10-06 14:09] LABS: BLOOD UREA NITROGEN 16 MG/DL (9-23); CALCIUM LEVEL 8.2 MG/DL (8.3-10.6); CARBON DIOXIDE LEVEL 27 MMOL/L (20-31); CHLORIDE LEVEL 104 MMOL/L (98-107); CK-MB VALUE MASS 1.4 NG/ML (<3.6); CPK CREATINE PHOSPHOKINASE 95 U/L (34-145); GLOMERULAR FILTRATION RATE > 60.0 (>32); GLUCOSE, FASTING 117 MG/DL (74-106); MB/CK RELATIVE INDEX 1.47 (< OR =4); POTASSIUM SERUM 4.3 MMOL/L (3.5-5.1); SODIUM LEVEL 135 MMOL/L (136-145)
[2023-10-06 14:18] LABS: RSV AMPLIFICATION NEGATIVE (NEGATIVE)
[2023-10-06 16:01] LABS: INR 1.05; PROTHROMBIN TIME 13.4 SECONDS (12.5-14.5)
[2023-10-06] MEDS ORDERED: **NOTE PATIENT COMMENT** MISC XX SCH (16:40)
[2023-10-06] MEDS ORDERED: HOME MED LIST COMPLETE! XX SCH (20:40)
[2023-10-07 07:10] LABS: HEMATOCRIT 42.6 % (36.0-47.0); MEAN CORPUSCULAR HEMOGLOBIN 31.6 pg (27.0-33.0); MEAN CORPUSCULAR HGB CONC 32.9 g/dl (32.0-36.5); MEAN CORPUSCULAR VOLUME 96.2 fl (80.0-96.0); PLATELET COUNT, AUTOMATED 259 10^3/uL (150-450); RED BLOOD COUNT 4.43 10^6/uL (4.00-5.40); WHITE BLOOD COUNT 7.1 10^3/uL (4.0-10.0)
[2023-10-07 07:44] LABS: BLOOD UREA NITROGEN 12 MG/DL (9-23); CALCIUM LEVEL 8.8 MG/DL (8.3-10.6); CARBON DIOXIDE LEVEL 26 MMOL/L (20-31); CHLORIDE LEVEL 106 MMOL/L (98-107); CREATININE FOR GFR 0.78 MG/DL (0.55-1.30); GLOMERULAR FILTRATION RATE > 60.0 (>32); GLUCOSE, FASTING 101 MG/DL (74-106); MAGNESIUM LEVEL 2.1 MG/DL (1.8-2.4); SODIUM LEVEL 139 MMOL/L (136-145)
[2023-10-07 08:39] LABS: FOLATE > 24.00 NG/ML (>5.4); THYROID STIMULATING HORMONE 2.186 uIU/ML (0.55-4.78); THYROXINE (T4) 7.5 UG/DL (4.5-10.9)
[2023-10-07 08:40] LABS: VITAMIN B12 LEVEL 643 PG/ML (211-911)
[2023-10-07 08:42] LABS: FREE THYROXINE INDEX 2.8 % (1.3-4.8); T UPTAKE 36.9 % (22.5-37.0)
[2023-10-07] MEDS: ATORVASTATIN 20 MG TAB PO SCH (10:14)
[2023-10-07] MEDS: ASPIRIN 81MG ENTERIC TABLET PO SCH (10:14)
[2023-10-07] MEDS: CLOPIDOGREL 75 MG TAB PO SCH (10:14)
[2023-10-07 16:50] VITALS: BP 144/71; TEMP 97.7; O2SAT 94
[2023-10-07 19:55] VITALS: BP 142/75; TEMP 97.9; O2SAT 95
[2023-10-07] MEDS ORDERED: MECLIZINE 25 MG TABLET PO PRN (22:20)
[2023-10-07] MEDS: DICYCLOMINE 10 MG CAP PO SCH (22:44)
[2023-10-08 05:28] VITALS: BP 139/72; TEMP 97.3; O2SAT 95
[2023-10-08 06:06] LABS: HEMATOCRIT 43.3 % (36.0-47.0); HEMOGLOBIN 14.3 g/dl (12.0-15.5); MEAN CORPUSCULAR HEMOGLOBIN 31.2 pg (27.0-33.0); MEAN CORPUSCULAR VOLUME 94.5 fl (80.0-96.0); PLATELET COUNT, AUTOMATED 267 10^3/uL (150-450); RED BLOOD COUNT 4.58 10^6/uL (4.00-5.40); WHITE BLOOD COUNT 7.5 10^3/uL (4.0-10.0)
[2023-10-08 06:31] LABS: BLOOD UREA NITROGEN 16 MG/DL (9-23); CALCIUM LEVEL 8.8 MG/DL (8.3-10.6); CARBON DIOXIDE LEVEL 25 MMOL/L (20-31); CHLORIDE LEVEL 107 MMOL/L (98-107); CREATININE FOR GFR 0.87 MG/DL (0.55-1.30); GLOMERULAR FILTRATION RATE > 60.0 (>32); GLUCOSE, FASTING 96 MG/DL (74-106); MAGNESIUM LEVEL 2.1 MG/DL (1.8-2.4); SODIUM LEVEL 140 MMOL/L (136-145)
[2023-10-08] MEDS: VITAMIN D 1,000 INTERNATIONAL UNITS TABLET PO SCH (12:41)
[2023-10-08] MEDS: OMEPRAZOLE 20MG CAP PO SCH (12:41)
[2023-10-08] MEDS: FEXOFENADINE 60MG TAB PO SCH (12:41)
[2023-10-08 12:46] VITALS: BP 132/83
[2023-10-08] MEDS: bisoproloL fumarate 5 MG TAB PO SCH (12:46)
== END 2023-10-08 15:52 | DRG 69 ==
LOC: EDBD 12:50 → M ED 12:50 → M ED INP 12:51 → OBSVTOIN 10-07 13:08 → ENRESERV 10-07 14:58 → M MSPAV 10-07 16:42
PROVIDERS: ADMIT Family Medicine; ATTEND General Practice
DX: G45.9 Transient cerebral ischemic attack, unspecified (principal); R47.01 Aphasia; R41.82 Altered mental status, unspecified; I11.9 Hypertensive heart disease without heart failure; E78.5 Hyperlipidemia, unspecified; M21.372 Foot drop, left foot; R53.1 Weakness; Z88.0 Allergy status to penicillin; Z88.2 Allergy status to sulfonamides; Z79.899 Other long term (current) drug therapy; Z79.82 Long term (current) use of aspirin; Z98.41 Cataract extraction status, right eye; Z98.42 Cataract extraction status, left eye; Z87.891 Personal history of nicotine dependence

== ENCOUNTER 2023-10-08 11:20 | Inpatient (IN) | payer MEDICARE, OTHER ==
[~2023-10-08] VITALS: Ht 172.7 cm; Wt 72.5 kg
[2023-10-08] MEDS ORDERED: MECLIZINE 25 MG TABLET PO PRN (13:10)
[2023-10-08] MEDS ORDERED: SIMETHICONE 80MG CHEW TAB PO PRN (13:30)
[2023-10-08] MEDS ORDERED: MIRALAX *UNIT DOSE* 17GM PACKET PO PRN (13:30)
[2023-10-08] MEDS ORDERED: MAALOX 30 ML SUSP *UDC PO PRN (13:30)
[2023-10-08] MEDS ORDERED: ACETAMINOPHEN TAB 650MG DOSE (2X325MG) PO PRN (13:30)
[2023-10-08] MEDS ORDERED: ONDANSETRON 4MG TAB PO PRN (13:30)
[2023-10-08] MEDS ORDERED: MOM 30ML SUSPENSION UDC PO PRN (13:30)
[2023-10-08 15:55] VITALS: BP 134/77; TEMP 97.8; O2SAT 96
[2023-10-08 20:00] VITALS: BP 122/60; TEMP 97.7; O2SAT 91
[2023-10-08] MEDS: SENNA 8.6 MG TAB (SENOKOT) PO SCH (20:30)
[2023-10-08] MEDS: DICYCLOMINE 10 MG CAP PO SCH (20:30)
[2023-10-09 06:00] VITALS: BP 127/74; TEMP 98.9; O2SAT 95
[2023-10-09 06:54] LABS: HEMATOCRIT 42.6 % (36.0-47.0); HEMOGLOBIN 14.6 g/dl (12.0-15.5); MEAN CORPUSCULAR HEMOGLOBIN 32.6 pg (27.0-33.0); MEAN CORPUSCULAR HGB CONC 34.3 g/dl (32.0-36.5); MEAN CORPUSCULAR VOLUME 95.1 fl (80.0-96.0); PLATELET COUNT, AUTOMATED 266 10^3/uL (150-450); RED BLOOD COUNT 4.48 10^6/uL (4.00-5.40); WHITE BLOOD COUNT 7.5 10^3/uL (4.0-10.0)
[2023-10-09 07:33] LABS: BLOOD UREA NITROGEN 18 MG/DL (9-23); CALCIUM LEVEL 8.9 MG/DL (8.3-10.6); CARBON DIOXIDE LEVEL 27 MMOL/L (20-31); CHLORIDE LEVEL 108 MMOL/L (98-107); CREATININE FOR GFR 0.91 MG/DL (0.55-1.30); GLOMERULAR FILTRATION RATE > 60.0 (>32); GLUCOSE, FASTING 103 MG/DL (74-106); POTASSIUM SERUM 4.6 MMOL/L (3.5-5.1); SODIUM LEVEL 141 MMOL/L (136-145)
[2023-10-09] MEDS: CLOPIDOGREL 75 MG TAB PO SCH (08:02)
[2023-10-09] MEDS: VITAMIN D 1,000 INTERNATIONAL UNITS TABLET PO SCH (08:02)
[2023-10-09] MEDS: ASPIRIN 81MG ENTERIC TABLET PO SCH (08:02)
[2023-10-09] MEDS: ENOXAPARIN 30MG/0.3ML SYRINGE (J1650 PER 10MG) SC SCH (08:02)
[2023-10-09] MEDS: ATORVASTATIN 20 MG TAB PO SCH (08:05)
[2023-10-09 08:07] VITALS: BP 110/57
[2023-10-09] MEDS: bisoproloL fumarate 5 MG TAB PO SCH (08:15)
[2023-10-09 14:00] VITALS: BP 119/56; TEMP 97.6; O2SAT 94
[2023-10-09 20:00] VITALS: BP 144/66; TEMP 98; O2SAT 94
[2023-10-10 06:00] VITALS: BP 133/65; TEMP 98.2; O2SAT 97
[2023-10-10 14:00] VITALS: BP 119/58; TEMP 98; O2SAT 98
[2023-10-10 20:01] VITALS: BP 111/61; TEMP 98.1; O2SAT 95
[2023-10-11 06:00] VITALS: BP 125/57; TEMP 97.1; O2SAT 94
[2023-10-11 06:57] LABS: HEMOGLOBIN 14.7 g/dl (12.0-15.5); MEAN CORPUSCULAR HEMOGLOBIN 31.7 pg (27.0-33.0); MEAN CORPUSCULAR HGB CONC 33.4 g/dl (32.0-36.5); PLATELET COUNT, AUTOMATED 247 10^3/uL (150-450); RED BLOOD COUNT 4.63 10^6/uL (4.00-5.40); WHITE BLOOD COUNT 7.2 10^3/uL (4.0-10.0)
[2023-10-11 14:22] VITALS: BP 120/62; TEMP 98.1; O2SAT 94
[2023-10-11 20:00] VITALS: BP 119/83; TEMP 96.6; O2SAT 94
[2023-10-12 06:00] VITALS: BP 123/59; TEMP 96.8; O2SAT 95
[2023-10-12 13:37] VITALS: BP 117/61; TEMP 98.1; O2SAT 94
[2023-10-12 20:00] VITALS: BP 124/58; TEMP 98.2; O2SAT 97
[2023-10-13 06:00] VITALS: BP 124/60; TEMP 99; O2SAT 93
[2023-10-13] MEDS ORDERED: SENNA 8.6 MG TAB (SENOKOT) PO PRN (12:20)
[2023-10-13 14:00] VITALS: BP 120/58; TEMP 97.9; O2SAT 96
[2023-10-13 20:31] VITALS: BP 109/56; TEMP 96.7; O2SAT 94
[2023-10-14 06:44] VITALS: BP 133/62; TEMP 97.4; O2SAT 96
[2023-10-14 06:57] LABS: HEMATOCRIT 42.3 % (36.0-47.0); HEMOGLOBIN 13.7 g/dl (12.0-15.5); MEAN CORPUSCULAR HEMOGLOBIN 31.3 pg (27.0-33.0); MEAN CORPUSCULAR HGB CONC 32.4 g/dl (32.0-36.5); MEAN CORPUSCULAR VOLUME 96.6 fl (80.0-96.0); PLATELET COUNT, AUTOMATED 258 10^3/uL (150-450); RED BLOOD COUNT 4.38 10^6/uL (4.00-5.40); WHITE BLOOD COUNT 6.6 10^3/uL (4.0-10.0)
[2023-10-14] MEDS: DICYCLOMINE 10 MG CAP PO SCH (08:03)
[2023-10-14 14:00] VITALS: BP 111/57; TEMP 97.4; O2SAT 96
[2023-10-14 20:00] VITALS: BP 121/58; TEMP 97.3; O2SAT 94
[2023-10-15 06:00] VITALS: BP 127/58; TEMP 98; O2SAT 96
[2023-10-15 08:37] VITALS: BP 114/56
[2023-10-15 08:39] VITALS: BP 114/56
[2023-10-15 14:00] VITALS: BP 137/74; TEMP 98; O2SAT 94
== END 2023-10-15 14:40 | disposition home health service (06) | DRG 57 ==
LOC: M PM&R 15:55
PROVIDERS: ADMIT Physical Medicine & Rehabilitation; ATTEND Student in an Organized Health Care Education/Training Program
DX: I69.320 Aphasia following cerebral infarction (principal); I11.9 Hypertensive heart disease without heart failure; E78.5 Hyperlipidemia, unspecified; M21.372 Foot drop, left foot; Z87.891 Personal history of nicotine dependence; R26.89 Other abnormalities of gait and mobility; M19.90 Unspecified osteoarthritis, unspecified site; H53.2 Diplopia; Z79.899 Other long term (current) drug therapy; Z79.82 Long term (current) use of aspirin; Z88.0 Allergy status to penicillin; Z88.2 Allergy status to sulfonamides; R19.7 Diarrhea, unspecified

== ENCOUNTER → 2023-11-21 | Outpatient (CLI) | payer MEDICARE, OTHER | LOC: M RAD 09:59 | PROVIDERS: ATTEND Internal Medicine | DX: S00.33XA Contusion of nose, initial encounter (principal); W19.XXXA Unspecified fall, initial encounter; Y92.9 Unspecified place or not applicable; Y93.9 Activity, unspecified; Y99.9 Unspecified external cause status; R90.82 White matter disease, unspecified; M47.812 Spondylosis without myelopathy or radiculopathy, cervical region; M50.321 Other cervical disc degeneration at C4-C5 level; M50.323 Other cervical disc degeneration at C6-C7 level; M50.33 Other cervical disc degeneration, cervicothoracic region ==

== ENCOUNTER → 2024-01-13 | Outpatient (CLI) | payer MEDICARE, OTHER ==
[~2024-01-13] MED LIST changes: +METO25TA4 PO; +VITA500T40 PO
== END ==
LOC: M EKG 09:59
PROVIDERS: ATTEND Internal Medicine Cardiovascular Disease
DX: G45.9 Transient cerebral ischemic attack, unspecified (principal); R00.1 Bradycardia, unspecified; I44.1 Atrioventricular block, second degree

== ENCOUNTER 2024-01-21 13:32 | Observation (INO) | payer MEDICARE, OTHER ==
[~2024-01-21] VITALS: Ht 172.7 cm; Wt 73.5 kg
[~2024-01-21 13:32] MED LIST changes: -METO25TA4 PO; -VITA500T40 PO
[2024-01-21] MEDS ORDERED: ISOVUE-370 76% 100ML VIAL As Ordered ONE (13:56)
[2024-01-21 14:16] LABS: BASO # 0.1 10^3/uL (0.0-0.2); BASO % 0.6 % (0.0-1.0); EOS % 0.5 % (0.0-3.0); HEMATOCRIT 40.5 % (36.0-47.0); HEMOGLOBIN 13.6 g/dl (12.0-15.5); LYMPH # 0.9 10^3/uL (1.5-5.0); LYMPH % 10.2 % (24.0-44.0); MEAN CORPUSCULAR HEMOGLOBIN 32.3 pg (27.0-33.0); MEAN CORPUSCULAR HGB CONC 33.6 g/dl (32.0-36.5); MEAN CORPUSCULAR VOLUME 96.2 fl (80.0-96.0); MONO # 0.3 10^3/uL (0.0-0.8); NEUTROPHILS # 7.1 10^3/uL (1.5-8.5); NEUTROPHILS % 84.5 % (36.0-66.0); PLATELET COUNT, AUTOMATED 279 10^3/uL (150-450); RED BLOOD COUNT 4.21 10^6/uL (4.00-5.40); WHITE BLOOD COUNT 8.4 10^3/uL (4.0-10.0)
[2024-01-21 14:31] LABS: INR 0.96; PARTIAL THROMBOPLASTIN TIME 27.1 SECONDS (24.8-34.2); PROTHROMBIN TIME 12.5 SECONDS (12.5-14.5)
[2024-01-21 14:48] LABS: ALBUMIN 3.6 G/DL (3.2-5.2); ALKALINE PHOSPHATASE 101 U/L (46-116); ALT/SGPT 16 U/L (7.0-40); AST/SGOT 15 U/L (<34); BILIRUBIN,DIRECT 0.1 MG/DL (<0.4); BILIRUBIN,TOTAL 0.4 MG/DL (0.3-1.2); BLOOD UREA NITROGEN 23 MG/DL (9-23); CALCIUM LEVEL 9.7 MG/DL (8.3-10.6); CARBON DIOXIDE LEVEL 25 MMOL/L (20-31); CHLORIDE LEVEL 106 MMOL/L (98-107); CREATININE FOR GFR 0.85 MG/DL (0.55-1.30); GLOMERULAR FILTRATION RATE > 60.0 (>32); GLUCOSE, FASTING 169 MG/DL (74-106); POTASSIUM SERUM 4.5 MMOL/L (3.5-5.1); SODIUM LEVEL 136 MMOL/L (136-145); TOTAL PROTEIN 6.9 G/DL (5.7-8.2)
[2024-01-21] MEDS ORDERED: MAALOX 30 ML SUSP *UDC PO PRN (15:50)
[2024-01-21] MEDS ORDERED: MOM 30ML SUSPENSION UDC PO PRN (15:50)
[2024-01-21] MEDS ORDERED: ACETAMINOPHEN TAB 650MG DOSE (2X325MG) PO PRN (15:50)
[2024-01-21 18:19] VITALS: BP 171/77; TEMP 97.2; O2SAT 93
[2024-01-21 18:36] VITALS: BP 142/78
[2024-01-21 19:58] VITALS: BP 152/84; TEMP 97.4; O2SAT 95
[2024-01-21] MEDS: DOCUSATE SODIUM 100MG CAPSULE PO SCH (20:05)
[2024-01-21] MEDS ORDERED: ATORVASTATIN 20 MG TAB PO SCH (21:00)
[2024-01-21 23:22] VITALS: BP 145/67; TEMP 97.5; O2SAT 94
[2024-01-22 03:48] VITALS: BP 129/71; TEMP 97.2; O2SAT 95
[2024-01-22] MEDS ORDERED: METO25TA4 PO (04:56)
[2024-01-22] MEDS ORDERED: VITA500T40 PO (04:56)
[2024-01-22 08:00] VITALS: BP 137/63; TEMP 96.1; O2SAT 95
[2024-01-22] MEDS ORDERED: ENOXAPARIN 40MG/0.4ML SYRINGE (J1650 PER 10MG) SC SCH (09:00)
[2024-01-22] MEDS ORDERED: CLOPIDOGREL 75 MG TAB PO SCH (09:00)
[2024-01-22] MEDS ORDERED: ASPIRIN 325 MG TAB PO SCH (09:00)
[2024-01-22 11:30] VITALS: BP 138/64; TEMP 96.2
[2024-01-22] MEDS ORDERED: ATOR1TAB21 PO ×2 (13:47→13:55)
== END 2024-01-22 15:50 | disposition home or self-care (01) ==
LOC: EDBD 13:32 → M ED 13:32 → M ED INP 15:49 → M PCU 18:09
PROVIDERS: ADMIT Internal Medicine; ATTEND Internal Medicine
DX: I69.320 Aphasia following cerebral infarction (principal); I25.10 Atherosclerotic heart disease of native coronary artery without angina pectoris; E78.5 Hyperlipidemia, unspecified; H53.2 Diplopia; M21.372 Foot drop, left foot; Z79.82 Long term (current) use of aspirin; Z79.899 Other long term (current) drug therapy; Z88.0 Allergy status to penicillin; Z88.2 Allergy status to sulfonamides
CPT/HCPCS: 70450; 70496; 70498; 70544; 70551; 71045; 80047; 80048; 80076; 85025; 85610; 85730; 93005; 93041; 94760; 96105; 97116; 97161; 97165; 99285; G0378; Q9967

== ENCOUNTER 2024-03-04 09:10 | Day surgery (SDC) | payer MEDICARE, OTHER ==
[~2024-03-04] VITALS: Ht 170.2 cm; Wt 71.8 kg
[~2024-03-04 09:10] MED LIST changes: +METO25TA4 PO; +VITA500T40 PO
[2024-03-04] MEDS ORDERED: LIDOCAINE 2% 100MG/5ML SDV (FOR ANES.) As Ordered ONE (09:31)
[2024-03-04] MEDS ORDERED: KETAMINE HCL 200MG/20ML VIAL As Ordered ONE (09:31)
[2024-03-04] MEDS ORDERED: propofoL 200 MG/20 ML VIAL As Ordered ONE (09:31)
[2024-03-04] MEDS: LR 1,000 ML IV SCH (10:29)
[2024-03-04] MEDS: ceFAZolin SOD 2 GM in IV 1 EA IV ONE (11:00)
[2024-03-04] MEDS: LIDOCAINE 1% SDV 30ML VIAL As Ordered ONE (11:23)
[2024-03-04 12:28] VITALS: BP 128/76; TEMP 97; O2SAT 96
== END 2024-03-04 12:35 | disposition home or self-care (01) ==
LOC: M SDC 09:10
PROVIDERS: ATTEND Internal Medicine Cardiovascular Disease
DX: G45.9 Transient cerebral ischemic attack, unspecified (principal); I10 Essential (primary) hypertension; E66.9 Obesity, unspecified; E78.5 Hyperlipidemia, unspecified; Z88.0 Allergy status to penicillin; Z88.2 Allergy status to sulfonamides; Z79.899 Other long term (current) drug therapy
CPT/HCPCS: 33285; C1764; J0690

== ENCOUNTER → 2024-03-24 | Outpatient (REF) | payer MEDICARE, OTHER ==
[~2024-03-24] MED LIST changes: -FEXO-157 PO; +FEXO-63 PO
== END ==
LOC: M LAB REF 16:34
PROVIDERS: ATTEND Internal Medicine
DX: D50.9 Iron deficiency anemia, unspecified (principal)